=== PATIENT | female | born 1955 | race Caucasian/White ===

== ENCOUNTER 2017-12-07 07:30 | Day surgery (SDC) | payer MEDICARE ==
[~2017-12-07] VITALS: Ht 170.2 cm; Wt 108.9 kg
--- NOTE | ~2017-12-07 | OP ---
PATIENT NAME: SANDEEP GRIMALDO MEDICAL RECORD: [id number] :59 LOCATION:D.OPS ADMISSION DATE: SURGEON: BRAULIO QUACH MD DATE OF OPERATION: 12/07/2017 PREOPERATIVE DIAGNOSES: History of bleeding gastric polyps. POSTOPERATIVE DIAGNOSES: 1. History of bleeding gastric polyps with 1 polyp which was pedunculated and appeared to have bled recently. 2. Watermelon stomach appearance with moderate gastritis; however, I noted no angioectasias. PROCEDURES: Esophagogastroduodenoscopy with gastric polypectomy utilizing the argon plasma editorial intern. SURGEON: Braulio Quach MD SALT MACHINE OPERATOR: None. BLOOD LOSS: Minimal. ANESTHESIA: General. COMPLICATIONS: None. The risks, possible complications and alternatives to the procedure were explained to the patient. She elects to proceed. OPERATIVE ENDOSCOPIC COURSE: The patient was conveyed to the operating room electively on 12/07/2017. General anesthesia was induced by anesthesia staff. The patient was placed in the [place] position. A digital rectal examination was performed. A colonoscope was inserted through the anus. It was easily advanced to the cecum. Upon withdrawal, retroflexed and angulus views were obtained. Biopsies of the polyp were obtained. The polypoid base was then ablated utilizing the argon plasma editorial intern with the esophageal setting in the forced mode. The endoscope was then withdrawn under direct vision. I will see the patient in my office in 2-3 weeks. I will then turn her endoscopic care back over to her press maintainer, Dr. Howe. TRANSINT:[id number] Voice Confirmation ID: [id number] DOCUMENT ID: [id number] BRAULIO QUACH MD at 1607 CC: RENA HOWE MD [id number] DICTATION DATE: 12/07/17 0947 PHOTOGRAPHY EDITOR: 12/07/17 1033 [facility] 12/07/17 [place] [id number] [place] [id number]
[~2017-12-07 07:30] MED LIST: BYSTOLIC10 MG PO; CIMETIDINE200 MG PO; CRESTOR5 MG PO; CYMBALTA30 MG PO; GLUCOPHAGE500 MG PO; HYDROCHLOROTH12.5 M1 PO; HYZAAR 50-12.51 TAB PO; LYRICA75 MG PO; OMEPRAZOLE40 MG PO; OS-CAL500 MG PO; SYNTHROID100 MCG PO; VITAMIN D31000 UNI2 PO
[2017-12-07 08:10] LABS: HEMOGLOBIN 11.9 g/dL (12-16); MCH 28.9 pg (26.0-34.0); MCHC 31.3 g/dL (31.0-37.0); MCV 92.2 fL (80.0-100.0); MEAN PLATELET VOLUME 10.4 fL (7.4-10.4); RBC 4.12 10x6/uL (4.00-5.40); RDW 13.5 % (11.5-14.5); WBC 8.8 10x3/uL (4.8-10.8)
[2017-12-07 08:21] VITALS: BP 121/68; Ht 170.2 cm; Wt 108.9 kg
[2017-12-07 08:26] LABS: ANION GAP 10.3 mmol/L (8-16); CALCIUM 9.5 mg/dL (8.5-10.1); CREATININE - SERUM 0.9 mg/dL (0.6-1.3); POTASSIUM - SERUM 3.3 mmol/L (3.5-5.1)
== END 2017-12-07 11:00 | disposition home or self-care (01) ==
LOC: D.OPS 07:30 → D.PAN 08:00 → D.OPS 08:00 → D.PAN 09:00 → D.OPS 09:10
PROVIDERS: Anesthesiology
DX: K31.7 Polyp of stomach and duodenum (principal); J45.909 Unspecified asthma, uncomplicated; E11.9 Type 2 diabetes mellitus without complications; E03.9 Hypothyroidism, unspecified; K21.9 Gastro-esophageal reflux disease without esophagitis; Z01.812 Encounter for preprocedural laboratory examination